=== PATIENT | male | born 1960 | race Caucasian/White ===

== ENCOUNTER 2016-11-26 23:27 | Emergency (ER) | payer OTHER ==
--- NOTE | 2016-11-26 23:54 | ED Physician Documentation ---
General Adult - HISTORIAN Historian: patient - HPI Stated Complaint: Multiple Complaints Chief Complaint: General Adult Onset: hours Timing: still present Severity: moderate Further Comments: yes (Pt is a 56 yo inmate with multiple complaints, including dizziness and chest pain. Pt states that he has frequent episodes of dizziness. Pt has a R BKA. He takes no meds. He says that he was once dx'd with HTN, but can't remember the medicine rx'd.) - ROS CONST: other (dizziness) EYES/ENT: none CVS/RESP: chest pain GI/: nausea MS/SKIN/LYMPH: other (pain in R LE s/p BKA) - PAST HX Past History: other (R BKA, HTN) Allergies/Adverse Reactions: Allergies Allergy/AdvReac Type Severity Reaction Status Date / Time No Known Allergies Allergy Unverified 11/26/16 23:40 Home Medications: Ambulatory Orders Medication Instructions Recorded NK [NK] 11/26/16 - SOCIAL HX Smoking History: non-smoker - FAMILY HX Family History: No - VITAL SIGNS Vital Signs: Vital Signs Temp Pulse Resp BP Pulse Ox 97 F L 65 18 145/86 98 11/26/16 23:30 11/26/16 23:30 11/26/16 23:30 11/26/16 23:30 11/26/16 23:30 - REVIEWED ASSESSMENTS Nursing Assessment Reviewed: Yes Vitals Reviewed: Yes Progress - Progress Progress: Follow up with orthopedic doctor to evaluate fit of R lower extremity prosthesis. - EKG/XRAY/CT EKG: rhythm (sinus bradycardia HR=58; normal EKG) XRAY: chest (Minimal right basilar atelectasis or scar.) ED Results Lab/Radiology - Orders Orders: ED Orders Category Date Time Status Continuous EKG monitoring Q30M Care 11/26/16 23:50 Active Continuous Pulse Oximetry Q30M Care 11/26/16 23:50 Active CHEST 1 VIEW [RAD] Stat Exams 11/26/16 23:50 Ordered CBC/PLATELET/DIFF Routine Lab 11/26/16 23:50 Ordered CKMB Stat Lab 11/26/16 Ordered CMP Routine Lab 11/26/16 23:50 Ordered CREATINE KINASE Routine Lab 11/26/16 23:50 Ordered TROPONIN I (cTnI) Stat Lab 11/26/16 Ordered EKG WITH COMPARISON Stat Ther 11/26/16 23:50 Ordered General Adult Physical Exam - PHYSICAL EXAM GENERAL APPEARANCE: mild distress EENT: pharynx normal NECK: normal inspection, supple RESPIRATORY: no resp distress, chest non-tender, breath sounds normal CVS: reg rate & rhythm, heart sounds normal ABDOMEN: soft, no organomegaly, normal bowel sounds BACK: normal inspection, no CVA tenderness SKIN: warm/dry, normal color EXTREMITIES: other (c/o pain R LE s/p BKA due to prosthesis fit) NEURO: oriented X3, motor nml, sensation nml Discharge Clincal Impression: R lower extremity pain, s/p BKA, Dizziness Referrals: Primary Doctor,No [Primary Care Provider] - Home Medications: Ambulatory Orders NK [NK] 11/26/16 Condition: Stable Disposition: 01 HOME, SELF-CARE Decision to Admit: NO Decision Time: 01:02
[2016-11-27 00:14] LABS: BASOPHILS % 1.4 (0.0-1.5); EOSINOPHILS % 4.1 % (0.0-6.8); MEAN CORPUSCULAR HEMOGLOBIN 30.7 pg (28.0-34.0); MEAN CORPUSCULAR VOLUME 90.3 fl (80.0-100.0); MONOCYTES % 4.8 % (0.0-11.0); NEUTROPHILS # 4.9 # k/uL (1.4-7.7)
[2016-11-27 00:28] LABS: eGFR (African) > 60; eGFR (Non-African) > 60
[2016-11-27 01:14] VITALS: BP 129/69
--- NOTE | 2016-11-27 05:40 | Diagnostic Imaging Report ---
IRMA VILLANUEVA [facility] [address] [facility] [address] [address] Report Submission Date: Nov 27, 2016 12:12:40 AM CDT Patient Study Name: AFRICA MYLES Date: Nov 26, 2016 11:52:17 PM CDT Modality Type: CR Gender: M Description: CHEST : 62 Institution: [facility] Physician: IRMA VILLANUEVA Portable chest History: Chest pain Findings: Calcified granulomas and minimal right base atelectasis scar are observed. There is no confluent infiltrate, pleural effusion, or pneumothorax. Heart size and pulmonary vascularity are normal. Impression: Minimal right basilar atelectasis or scar. Electronically signed on Nov 27, 2016 12:12:40 AM CDT by: Omer SANTOS
== END 2016-11-27 01:12 | disposition home or self-care (01) ==
LOC: ED 23:27
DX: M79.606 Pain in leg, unspecified (principal); Z89.519 Acquired absence of unspecified leg below knee; R42 Dizziness and giddiness
CPT/HCPCS: 71010; 80053; 82550; 82553; 84484; 85025; 99283

== ENCOUNTER 2017-08-27 11:37 | Emergency (ER) | payer OTHER ==
[2017-08-27 11:59] VITALS: BP 139/88
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
== END 2017-08-27 12:18 | disposition home or self-care (01) ==
LOC: ED 11:37
DX: S80.01XA Contusion of right knee, initial encounter (principal); T81.31XA Disruption of external operation (surgical) wound, not elsewhere classified, initial encounter
CPT/HCPCS: 99282

== ENCOUNTER 2017-10-08 16:49 | Emergency (ER) | payer OTHER ==
[2017-10-08] MEDS ORDERED: CEPHALEXIN 250 MG CAPSULE PO ONE (17:54)
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
[2017-10-08 19:28] VITALS: BP 138/82
== END 2017-10-08 18:00 | disposition home or self-care (01) ==
LOC: ED 16:49
DX: T87.81 Dehiscence of amputation stump (principal); X58.XXXA Exposure to other specified factors, initial encounter; Y92.9 Unspecified place or not applicable; Y93.9 Activity, unspecified; Y99.9 Unspecified external cause status
CPT/HCPCS: 99283

== ENCOUNTER 2017-10-11 22:27 | Emergency (ER) | payer OTHER ==
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
[2017-10-11] MEDS ORDERED: 0.9 % SODIUM CHLORIDE 1,000 ML IV SCH (23:00)
[2017-10-11 23:53] LABS: BASOPHILS % 1.2 (0.0-1.5); EOSINOPHILS % 7.8 % (0.0-6.8); MEAN CORPUSCULAR HEMOGLOBIN 29.3 pg (28.0-34.0); MEAN CORPUSCULAR VOLUME 92.2 fl (80.0-100.0); MONOCYTES % 4.7 % (0.0-11.0); NEUTROPHILS # 5.3 # k/uL (1.4-7.7)
[2017-10-11] MEDS ORDERED: 0.9 % SODIUM CHLORIDE 1,000 ML IV ONE (23:53)
[2017-10-12 00:04] LABS: eGFR (African) > 60; eGFR (Non-African) > 60
[2017-10-12 00:22] LABS: APPEARANCE,URINE CLOUDY (CLEAR); COLOR,URINE YELLOW (YELLOW); OCCULT BLOOD,URINE NEGATIVE (NEGATIVE); PH URINE 6.5 (5.0 - 8.0)
[2017-10-12 00:23] LABS: UROBILINOGEN URINE 0.2 Eu (0.2-1.0)
[2017-10-12 01:32] VITALS: BP 152/108
--- NOTE | 2017-10-12 06:53 | Diagnostic Imaging Report ---
ZAHRAA JAVIER [facility] [address] [facility] [address] [place], [place]. [address] Report Submission Date: Oct 11, 2017 11:52:33 PM CDT Patient Study Name: AFRICA MYLES Date: Oct 11, 2017 11:38:02 PM CDT Modality Type: CT\SR Gender: M Description: CT BRAIN W/O CONTRAST : 62 Institution: [facility] Physician: ZAHRAA JAVIER CT brain noncontrast Date of study: October 11, 2017 CLINICAL HISTORY: UNRESPONSIVENESS PRIOR TO ARRIVAL, PATIENT STATES HAVING MULTIPLE BLACK OUTS RECENTLY (Hx) / ITS.REASON Unresponsivenss at [facility] prior to arrival Note time : 10/12/2017 12:46:28 AM User : Arie Giraldo UNRESPONSIVENESS PRIOR TO ARRIVAL (DICOM Hx) TECHNIQUE: 5 mm contiguous axial images of the brain, noncontrast. FINDINGS: There is no evidence of intracranial mass effect, hemorrhage, or acute hydrocephalus. The lateral ventricles are symmetrical and the 4th ventricle is midline without shift. No acute brain parenchymal changes or extra-axial fluid collections are identified. The posterior fossa contents are within normal limits. The calvarium is intact. The visualized sinuses show multi sinus mucosal thickening and mastoid air cells are clear. IMPRESSION: No acute intracranial process. Electronically signed on Oct 11, 2017 11:52:33 PM CDT by: Craig SANTOS
== END 2017-10-12 01:00 | disposition home or self-care (01) ==
LOC: ED 22:27
DX: R55 Syncope and collapse (principal)
CPT/HCPCS: 70450; 80053; 81002; 85025; 93005; J7030; 96365; 99285; S1016

== ENCOUNTER 2019-02-25 16:02 | Emergency (ER) | payer OTHER ==
--- NOTE | 2019-02-25 16:08 | ED Physician Documentation ---
Upper Extremity Injury - HISTORIAN Historian: patient - HPI Stated Complaint: fell and right shoulder pain - issue with his right BKA amp Chief Complaint: Fall Onset: just prior to arrival Where: other (usp) Severity: moderate Duration: persistent since Context: fall Associated Symptoms: tingling (right arm ) Further Comments: yes (he states he slipped and fell back hitting his right shoulder on the wall and he has had pain since and some numbness in his right arm. He also is concerned with a wound on the right stump . He has had a sore and pain for " a while" and he states he needs order to have a wheelchair and stump socks (all of which he needs to discuss with the dr at the [facility])) - ROS CONST: no problems - PAST HX Past History: other (HTN, ) Allergies/Adverse Reactions: Allergies Allergy/AdvReac Type Severity Reaction Status Date / Time No Known Allergies Allergy Verified 02/25/19 16:25 Home Medications: Ambulatory Orders Medication Instructions Recorded NK 10/08/17 - SOCIAL HX Smoking History: cigarettes Alcohol Use: none Drug Use: none - FAMILY HX Family History: none - VITAL SIGNS Vital Signs: Vital Signs Temp Pulse Resp BP Pulse Ox 98.2 F 74 20 165/112 99 02/25/19 16:21 02/25/19 16:21 02/25/19 16:21 02/25/19 16:21 02/25/19 16:21 - REVIEWED ASSESSMENTS Nursing Assessment Reviewed: Yes Vitals Reviewed: Yes Progress - Progress Progress: 1814: Discussed results and plan DG ED Results Lab/Radiology - Orders Orders: ED Orders Category Date Time Status SHOULDER 2 VIEWS OR MORE [RAD] Stat Exams 02/25/19 Ordered TIBIA & FIBULA 2 VIEW [RAD] Stat Exams 02/25/19 Completed Ketorolac Tromethamine [Toradol] Med 02/25/19 17:07 Discontinued 60 mg IM NOW ONE Upper Extremity Injury Physic - Physical Exam General Appearance: no acute distress, alert Hand: normal inspection, non-tender, no evidence of injury Wrist: normal inspection Elbow/Forearm: normal inspection, non-tender, no evidence of injury Shoulder: normal inspection, limited ROM, pain, soft tissue tenderness. No: no evidence of injury, swelling Neuro/Vascular/Tendon: no vascular compromise Skin: warm,dry, other (right stump (below right knee amp) with 2 cm open area at distal end of stump no drainage ) Head/ENT: nml inspection Neck/Back: nml inspection Resp/CVS: chest non-tender Abdomen: non-tender Discharge Clincal Impression: Shoulder pain, right Qualifiers: Chronicity: acute Qualified Code(s): M25.511 - Pain in right shoulder Referrals: Primary Doctor,No [Primary Care Provider] - 2 Days Comments: 1. OTC meds as directed as needed for pain 2. Follow up with PCP on stump concerns and needs 3. Bactrim DS take 1 by mouth twice daily x 10 days 4. Return to ER for any increased concerns Condition: Stable Disposition: 01 HOME, SELF-CARE Decision to Admit: NO Date of Decison to Admit: 02/25/19 Decision Time: 18:14
[2019-02-25] MEDS ORDERED: KETOROLAC TROMETHAMINE 60 MG/2 ML VIAL IM ONE (17:07)
--- NOTE | 2019-02-25 18:06 | Diagnostic Imaging Report ---
PATIENT MR#: [id number] PATIENT PATIENT NAME: AFRICA MYLES DATE OF : 1960 REFERRING PHYSICIAN: Lubna Norris EXAM DATE: 02/25/2019 ACCESSION NUMBER: [id number] EXAM DESCRIPTION: TIBIA FIBULA 2 VIEW Right tibia fibula, two views History: Fall with pain. Findings: There is a below the knee amputation present. There is no evidence of acute fracture. The knee join t is normal. but appears to be a laceration is seen in the distal portion the stomach. Impression: 1. Postoperative change compatible with [id number] amputation. 2. Soft tissue injury the distal portion the stump suggested. 3. No acute fracture. Read by: Dr. Terence Bates Transcribed by: Transcribed Date: Electronically signed by: Dr. Terence Bates Date signed: 02/25/2019 6:06:25 PM
--- NOTE | 2019-02-25 18:09 | Diagnostic Imaging Report ---
PATIENT MR#: [id number] PATIENT PATIENT NAME: AFRICA MYLES DATE OF : 1960 REFERRING PHYSICIAN: Lubna Norris EXAM DATE: 02/25/2019 ACCESSION NUMBER: [id number] EXAM DESCRIPTION: SHOULDER 2 VIEWS OR MORE Right shoulder, three views History: Right shoulder pain after fall. Findings: The osseous structures are intact without fracture. The humeral head is well seated withi n the glenoid fossa. The acromioclavicular joint demonstrates minimal degenerative change. The imaged portion the hemithorax is normal. Impression: 1. No acute osseous abnormality. Read by: Dr. Terence Bates Transcribed by: Transcribed Date: Electronically signed by: Dr. Terence Bates Date signed: 02/25/2019 6:09:25 PM
[2019-02-25 18:22] VITALS: BP 139/88
== END 2019-02-25 18:22 | disposition home or self-care (01) ==
LOC: ED 16:02
DX: M25.511 Pain in right shoulder (principal); F17.210 Nicotine dependence, cigarettes, uncomplicated
CPT/HCPCS: 73030; 73590; 96372; 99282; 99283; J1885

== ENCOUNTER 2019-03-15 21:17 | Emergency (ER) | payer OTHER ==
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
[2019-03-15] MEDS: KETOROLAC TROMETHAMINE 60 MG/2 ML VIAL IM ONE (22:32)
[2019-03-15 22:59] VITALS: BP 139/88
[2019-03-16 06:12] LABS: APPEARANCE,URINE CLEAR (CLEAR); COLOR,URINE YELLOW (YELLOW); OCCULT BLOOD,URINE NEGATIVE (NEGATIVE); PH URINE 7.5 (5.0 - 8.0); UROBILINOGEN URINE 0.2 Eu (0.2-1.0)
== END 2019-03-15 22:52 | disposition home or self-care (01) ==
LOC: ED 21:17
DX: R07.81 Pleurodynia (principal); W19.XXXA Unspecified fall, initial encounter
CPT/HCPCS: 71100; 81002; 96372; 99282; 99283; J1885

== ENCOUNTER 2019-03-24 12:53 | Emergency (ER) | payer OTHER ==
--- NOTE | 2019-03-24 12:59 | ED Physician Documentation ---
General Adult - HISTORIAN Historian: patient - HPI Stated Complaint: LLQ abdominal pain x 3 days Chief Complaint: Abdominal Pain Onset: days ago (3) Timing: still present, worse Severity: moderate (10/11 sometimes 01/11 - no OTC Meds he was seen and told he had constipation. He has not had a "real" bowel movement in 17 days. No fever. No nasuea or vomiting. No diarrhea. No shortness of air . No injury ) - ROS CONST: no problems CVS/RESP: denies: chest pain, shortness of breath, cough GI/: abdominal pain. denies: problems urinating, vomiting, nausea, diarrhea MS/SKIN/LYMPH: none NEURO/PSYCH: denies: headache - PAST HX Past History: hypertension Allergies/Adverse Reactions: Allergies Allergy/AdvReac Type Severity Reaction Status Date / Time No Known Allergies Allergy Verified 03/24/19 13:17 Home Medications: Ambulatory Orders Medication Instructions Recorded Ibuprofen [Ibu] 600 mg PO TID 03/24/19 Lisinopril [Zestril] 40 mg PO DAILY 03/24/19 Valacyclovir HCl [Valacyclovir] 1,000 mg PO QID 03/24/19 - SOCIAL HX Smoking History: cigarettes Alcohol Use: none Drug Use: none - FAMILY HX Family History: No - VITAL SIGNS Vital Signs: Vital Signs Temp Pulse Resp BP Pulse Ox 139/88 03/15/19 22:58 - REVIEWED ASSESSMENTS Nursing Assessment Reviewed: Yes Vitals Reviewed: Yes Progress - Progress Progress: 1420: return from CT and moves easily to bed no apparent pain or distress. DG 1500: discussed results and he states he is sleeping on a hard surface so he is sure that is what the issue is and wants an order for something different DG No referrals due to prisoner DG General Adult Physical Exam - PHYSICAL EXAM GENERAL APPEARANCE: mild distress EENT: eye inspection normal, ENT inspection normal, pharynx normal, no signs of dehydration, papilledema RESPIRATORY: no resp distress, chest non-tender, breath sounds normal CVS: reg rate & rhythm, heart sounds normal ABDOMEN: soft, no distension, tenderness (LLQ ) BACK: normal inspection, no CVA tenderness EXTREMITIES: non-tender, normal range of motion, no evidence of injury, no edema NEURO: oriented X3 Discharge Clincal Impression: Left lower quadrant abdominal pain Referrals: Primary Doctor,No [Primary Care Provider] - 2 Days Comments: 1. Continue as treated by physician 2. No new orders 3. Return to ER for any increased concerns Condition: Stable Disposition: 01 HOME, SELF-CARE Decision to Admit: NO Date of Decison to Admit: 03/24/19 Decision Time: 15:03
[2019-03-24] MEDS ORDERED: 0.9 % SODIUM CHLORIDE 1,000 ML IV ONE (13:20)
[2019-03-24 13:35] LABS: BASOPHILS % 0.4 % (0.0-1.5); NEUTROPHILS # 4.5 # k/uL (1.4-7.7)
[2019-03-24 13:46] LABS: eGFR (Non-African) > 60
[2019-03-24 13:50] LABS: APPEARANCE,URINE CLEAR (CLEAR); COLOR,URINE YELLOW (YELLOW); OCCULT BLOOD,URINE NEGATIVE (NEGATIVE); PH URINE 5.5 (5.0 - 8.0); UROBILINOGEN URINE 0.2 Eu (0.2-1.0)
[2019-03-24] MEDS ORDERED: KETOROLAC TROMETHAMINE 30 MG/1ML VIAL IV ONE (14:17)
--- NOTE | 2019-03-24 14:40 | Diagnostic Imaging Report ---
PATIENT MR#: [id number] PATIENT PATIENT NAME: AFRICA MYLES DATE OF : 1960 REFERRING PHYSICIAN: Lubna Norris EXAM DATE: 03/24/2019 ACCESSION NUMBER: [id number] EXAM DESCRIPTION: CT ABD PELVIS W/ CON CT abdomen and pelvis with contrast Date of study: CLINICAL HISTORY: ABDOMINAL PAIN PATIENTS STATES LLQ/LEFT FLANK PAIN X 17 DAYS; PATIENT ALSO STATES MINIMAL TO NO BOWEL 03/24/2019 2:20:47 PM User : Tita Solares ABDOMINAL PAIN PATIENTS STATES LLQ/LEFT FLANK PAIN X 17 DAYS; PATIENT ALSO STATES MINIMAL TO NO BOWEL MOVEMENTS FOR 17 DAYS ( DICOM Hx) (DICOM Hx) TECHNIQUE: 5 mm contiguous axial images of the abdomen and pelvis with IV contrast. With; 90 CC OMNIPAQUE FINDINGS: Abdomen: The liver, pancreas and spleen are normal in appearance. The gallbladder is unremarkable. Th e kidneys enhance appropriately and symmetrically. The aorta is normal in caliber. The small bowel is nondistended. The re is no evidence of free air. Pelvis: The colon is normal in appearance. The distal ureters and bladder are normal. There is no olinda dence of free fluid. The sigmoid colon and rectum are normal. The remaining pelvic structures are within normal torres its and the bones of the pelvis are intact. IMPRESSION: No evidence of acute abdominal or pelvic visceral process Read by: Dr. Kalyna Velasquez Transcribed by: Transcribed Date: Electronically signed by: Dr. Kalyan Velasquez Date signed: 03/24/2019 2:40:00 PM
[2019-03-24 15:06] VITALS: BP 139/88
== END 2019-03-24 14:57 | disposition home or self-care (01) ==
LOC: ED 12:53
DX: R10.32 Left lower quadrant pain (principal)
CPT/HCPCS: 74177; 80053; 81002; 85025; 96361; 96374; 99282; 99284; J1885; J7030; Q9967; S1016